=== PATIENT | female | born 1945 | race Caucasian/White ===

== ENCOUNTER → 2021-08-31 | Outpatient (CLI) | payer MEDICARE ==
[~2021-08-31] MED LIST: ALEVE220 MG PO; CHLORPHENIRAMINE4 M1 PO; CLARITIN10 M2 PO; CRANBERRY400 MG PO; DYRENIUM; HYDROCHLOROTHIA25 M2 PO; MOBIC7.5 MG PO; MULTIVITAMINS; OS-CAL 500+D C1 EACH PO; OSCAL; PAXIL20 MG PO; PREVACID15 MG PO; PROTONIX40 M2; PROZAC20 MG PO; VITAMIN D400 UNI1 PO; WELLBUTRIN SR150 MG PO
== END ==
LOC: M.MRI 13:10
PROVIDERS: ATTEND Family Medicine
DX: M47.812 Spondylosis without myelopathy or radiculopathy, cervical region (principal); M48.02 Spinal stenosis, cervical region; M25.78 Osteophyte, vertebrae; G44.59 Other complicated headache syndrome